=== PATIENT | male | born 1990 | race Hispanic/Latino ===

== ENCOUNTER 2016-06-16 19:15 | Emergency (ER) | payer OTHER ==
[~2016-06-16] VITALS: Ht 175.3 cm; Wt 66.3 kg
[~2016-06-16 19:15] MED LIST: ADDERALL XR 2525 MG PO; ALBUTEROL S5 MG/1 ML IH; ALBUTEROL SULF8.5 GM IH; ANUSOL-HC21 GM PR; AZITHROMYCIN250 MG1 PO; BENADRYL25 MG PO; BENTYL10 MG PO; COLACE100 MG PO; ERYTHROMYCIN O3.5 GM LEFT EYE; LEVAQUIN750 MG PO; LORTAB 5-500 T1 EACH PO; MOTRIN600 MG PO; NAPROSYN-EC500 MG PO; NORCO 5/3251 TABLET PO; PEPCID40 MG PO; PREDNISONE10 M1 PO; PREDNISONE20 MG PO; PREDNISONE50 MG PO; PROAIR HFA8.5 GM IH; PROVENTIL,2.5 MG/3 M IH; TYLENOL WITH C1 EACH PO; ULTRAM50 MG PO; VENTOLIN HFA18 GM IH; ZITHROMAX Z-PA250 MG PO; ZITHROMAX250 MG PO; ZOFRAN ODT4 MG PO; ZOFRAN ODT8 MG PO; ZOFRAN4 MG PO; no home
[2016-06-16] MEDS ORDERED: NAPROSYN500 MG PO (21:19)
[2016-06-16 21:59] VITALS: BP 119/84
== END 2016-06-16 22:01 | disposition home or self-care (01) ==
LOC: EME 19:15
PROC: 2W3EX1Z Immobilization of Right Hand using Splint (ICD-10-PCS; principal; 2016-06-16)
DX: S60.221A Contusion of right hand, initial encounter (principal); W23.0XXA Caught, crushed, jammed, or pinched between moving objects, initial encounter; F17.200 Nicotine dependence, unspecified, uncomplicated
CPT/HCPCS: 73130; 99281; 99283

== ENCOUNTER 2016-07-23 20:19 | Emergency (ER) | payer OTHER ==
[~2016-07-23] VITALS: Ht 175.3 cm; Wt 68.1 kg
[~2016-07-23 20:19] MED LIST changes: +NAPROSYN500 MG PO
[2016-07-23] MEDS ORDERED: NORCO 5/3251 TABLET PO (21:14)
[2016-07-23 22:10] VITALS: BP 134/85
== END 2016-07-23 22:12 | disposition home or self-care (01) ==
LOC: EME 20:19
DX: S62.323A Displaced fracture of shaft of third metacarpal bone, left hand, initial encounter for closed fracture (principal); S62.325A Displaced fracture of shaft of fourth metacarpal bone, left hand, initial encounter for closed fracture; W27.0XXA Contact with workbench tool, initial encounter; Z91.040 Latex allergy status; Z88.8 Allergy status to other drugs, medicaments and biological substances; F17.200 Nicotine dependence, unspecified, uncomplicated
CPT/HCPCS: 73130; 99281; 99284

== ENCOUNTER 2016-09-10 13:56 | Emergency (ER) | payer OTHER ==
[~2016-09-10] VITALS: Ht 177.8 cm; Wt 62.3 kg
[2016-09-10 16:08] LABS: HEMATOCRIT 40.2 % (38.0-50.0); MCHC 33.6 G/DL (30.0-36.0); MCV 86.3 FL (86-99); MEAN PLAT.VOLUME 10.4 uM^3 (9.0-12.4); PLATELET COUNT 193 K/uL (156-360); RBC DIS.WIDTH-CV 13.9 % (11.8-14.6); RBC DIS.WIDTH-SD 44.3 % (39-53); RED BLOOD COUNT 4.66 M/uL (4.00-5.50); WHITE BLOOD COUNT 14.8 K/uL (4.1-10.2)
[2016-09-10 16:21] LABS: CHLORIDE 102 mEq/L (99-109); POTASSIUM 4.3 mEq/L (3.7-5.4); SODIUM 136 mEq/L (136-147)
[2016-09-10 16:23] LABS: GLUCOSE 76 mg/dL (70-99)
[2016-09-10 16:24] LABS: ANION GAP 13 MEQ/L (2-14)
[2016-09-10 16:25] LABS: TOTAL BILIRUBIN 0.9 mg/dL (0.0-1.0)
[2016-09-10 16:26] LABS: ALKALINE PHOSPHATASE 63 IU/L (3-129)
[2016-09-10 16:27] LABS: GFR ESTIMATE (CALCULATED) > 59 mL/min/
[2016-09-10 16:28] LABS: DIRECT BILIRUBIN 0.3 mg/dL (0.0-0.3); UREA NITROGEN (BUN) 10 mg/dL (9-23)
[2016-09-10 16:30] LABS: LIPASE 4 U/L (1.0-51.0)
[2016-09-10 16:31] LABS: TROP-I INTERPRETATION NEGATIVE; TROPONIN-I < 0.01 ng/mL (0.0-0.30)
[2016-09-10 16:53] LABS: ADD MIUA? YES; BILIRUBIN NEGATIVE; BLOOD MODERATE; COLOR YELLOW ((YELLOW)); GLUCOSE (STRIP) NEGATIVE; KETONES 20; LEUKOCYTES NEGATIVE; NITRITE NEGATIVE; PROTEIN (STRIP) 30
[2016-09-10 17:09] LABS: BACTERIA NONE SEEN /HPF; EPITHELIAL CELLS RARE /HPF; MUCUS TRACE /LPF; RED BLOOD CELLS TNTC /HPF (0-5); WHITE BLOOD CELLS 0-5 /HPF (0-5)
[2016-09-10] MEDS ORDERED: VENTOLIN HFA18 GM IH (17:22)
[2016-09-10] MEDS ORDERED: PROVENTIL,2.5 MG/3 M IH ×2 (17:22→17:23)
[2016-09-10] MEDS ORDERED: PREDNISONE20 MG PO (17:22)
[2016-09-10] MEDS ORDERED: ATROVENT 00.5 MG/2.5 IH ×2 (17:22→17:23)
[2016-09-10 18:01] VITALS: BP 108/62
== END 2016-09-10 17:58 | disposition home or self-care (01) ==
LOC: EXP 13:56 → EME 13:56 → EXP 17:58
PROVIDERS: Nurse Practitioner Family
PROC: 0HQ1XZZ Repair Face Skin, External Approach (ICD-10-PCS; principal; 2016-09-10)
DX: R55 Syncope and collapse (principal); S01.81XA Laceration without foreign body of other part of head, initial encounter; W19.XXXA Unspecified fall, initial encounter; J45.901 Unspecified asthma with (acute) exacerbation; F17.200 Nicotine dependence, unspecified, uncomplicated
CPT/HCPCS: 70450; 71020; 80048; 80076; 81003; 83690; 84484; 85027; 93005; 94640; 99281; 99285; J2405; J2930; J7030

== ENCOUNTER 2017-02-07 07:23 | Emergency (ER) | payer OTHER ==
[~2017-02-07] VITALS: Ht 175.3 cm; Wt 68.7 kg
[~2017-02-07 07:23] MED LIST changes: +ATROVENT 00.5 MG/2.5 IH
[2017-02-07] MEDS ORDERED: PROAIR HFA8.5 GM IH (08:54)
[2017-02-07] MEDS ORDERED: DELTASONE20 M1 PO (08:54)
[2017-02-07 09:22] VITALS: BP 119/72
== END 2017-02-07 09:23 | disposition home or self-care (01) ==
LOC: EME 07:23
DX: J45.901 Unspecified asthma with (acute) exacerbation (principal); J30.2 Other seasonal allergic rhinitis; F31.9 Bipolar disorder, unspecified; F90.9 Attention-deficit hyperactivity disorder, unspecified type; F17.200 Nicotine dependence, unspecified, uncomplicated; Z91.040 Latex allergy status; Z88.8 Allergy status to other drugs, medicaments and biological substances
CPT/HCPCS: 71020; 94640; 99281; 99284; J7512

== ENCOUNTER 2017-07-15 19:45 | Emergency (ER) | payer OTHER ==
[~2017-07-15] VITALS: Ht 175.3 cm; Wt 65.4 kg
[~2017-07-15 19:45] MED LIST changes: +DELTASONE20 M1 PO
[2017-07-15] MEDS ORDERED: KEFLEX500 MG PO (21:36)
[2017-07-15 21:53] VITALS: BP 112/60
== END 2017-07-15 21:53 | disposition home or self-care (01) ==
LOC: EME 19:45
PROC: 0H94XZZ Drainage of Neck Skin, External Approach (ICD-10-PCS; principal; 2017-07-15)
DX: L02.11 Cutaneous abscess of neck (principal); F17.200 Nicotine dependence, unspecified, uncomplicated; Z91.040 Latex allergy status; Z88.8 Allergy status to other drugs, medicaments and biological substances
CPT/HCPCS: 99281; 99283

== ENCOUNTER 2017-11-06 19:18 | Emergency (ER) | payer SELFPAY ==
[~2017-11-06] VITALS: Ht 175.3 cm; Wt 64.7 kg
[~2017-11-06 19:18] MED LIST changes: +KEFLEX500 MG PO
[2017-11-06 21:30] VITALS: BP 106/73
== END 2017-11-06 21:30 | disposition home or self-care (01) ==
LOC: RME 19:18 → EME 19:18 → RME 21:30
PROC: 0HQFXZZ Repair Right Hand Skin, External Approach (ICD-10-PCS; principal; 2017-11-06)
DX: S61.210A Laceration without foreign body of right index finger without damage to nail, initial encounter (principal); S61.212A Laceration without foreign body of right middle finger without damage to nail, initial encounter; W25.XXXA Contact with sharp glass, initial encounter; Y93.89 Activity, other specified; F17.200 Nicotine dependence, unspecified, uncomplicated; Z91.040 Latex allergy status; Z88.8 Allergy status to other drugs, medicaments and biological substances
CPT/HCPCS: 99281; 99284